=== PATIENT | male | born 1955 | race Caucasian/White ===

== ENCOUNTER 2019-08-17 17:56 | Outpatient (RCR) | payer BC, SELFPAY ==
[2019-08-17] MEDS: SODIUM CHLORIDE 0.9% IV 1,000 ML 500 ML IV CONT (18:25)
== END 2019-11-15 23:59 | disposition home or self-care (01) ==
LOC: CHSTREATRM 17:56
DX: C15.9 Malignant neoplasm of esophagus, unspecified (principal); E86.0 Dehydration
CPT/HCPCS: 96360; 96361; J7030

== ENCOUNTER 2020-03-28 15:20 | Outpatient (CLI) | payer BC, SELFPAY ==
--- NOTE | ~2020-03-28 | XR_ITS ---
EXAMINATION: XR lumbar spine 2-3V DATE: 03/28/2020 15:51 INDICATION: Low back pain TECHNIQUE: Anteroposterior and lateral views of the lumbar spine, and cone-down lateral view of the l umbosacral junction were obtained. COMPARISON: None. FINDINGS: There is no fracture, dislocation, or subluxation. Mild loss of intervertebral disc space h eight is present at L4-5. The vertebral body heights are maintained. There is moderate lower lumbar f acet osteoarthritis. Small degenerative osteophytes project from the anterior endplates of multiple v ertebral bodies. Calcified atherosclerosis is noted. There are surgical clips projecting in the midl ine of the lower thorax. IMPRESSION: 1. Mild lumbar spondylosis without acute findings. Reviewed, dictated and finalized at location F.
--- NOTE | ~2020-03-28 | XR_ITS ---
EXAMINATION:XR_[id number]_CR DATE: 03/28/2020 15:51 INDICATION: Neck and right shoulder pain TECHNIQUE: AP, lateral, lateral swimmers and odontoid views of the cervical spine are provided. COMPARISON: None FINDINGS: The odontoid is intact. No fracture is identified. Bone alignment is normal. There is sever e loss of intervertebral disc space height at C5-6 and C6-7. There is mild chronic anterior wedging o f the C6 vertebral body without significant change. Small degenerative osteophytes project from the a nterior endplates of multiple vertebral bodies. A partially imaged right-sided Port-A-Cath is noted. Prevertebral soft tissues are normal. IMPRESSION: 1. Severe lower cervical spondylosis and chronic anterior wedging at C6 without acute findings or sig nificant interval change. Reviewed, dictated and finalized at location F. IMPRESSION: 1. Severe lower cervical spondylosis and chronic anterior wedging at C6 without acute findings or significant interval change.
--- NOTE | ~2020-03-28 | XR_ITS ---
EXAMINATION: XR thoracic spine 3V DATE: 03/28/2020 15:52 INDICATION: Back pain TECHNIQUE: AP, lateral and lateral swimmer's views of the thoracic spine were obtained. COMPARISON: None. FINDINGS: Back pain the vertebral body heights and alignment are normal. There is mild loss of interv ertebral disc space height at multiple levels throughout the thoracic spine. Small degenerative osteo phytes project from the anterior endplates of multiple vertebral bodies. Surgical clips are seen in m idline thorax, suspected to be related to esophagectomy. IMPRESSION: 1. Mild thoracic spondylosis without acute findings. Reviewed, dictated and finalized at location F.
== END 2020-03-28 15:21 | disposition home or self-care (01) ==
LOC: CHSIMG 15:22
PROVIDERS: PCP Internal Medicine; Visit Provider Internal Medicine
DX: M25.511 Pain in right shoulder (principal); M54.5 Low back pain; Z85.01 Personal history of malignant neoplasm of esophagus
CPT/HCPCS: 72040; 72072; 72100

== ENCOUNTER 2020-04-06 10:36 | Outpatient (CLI) | payer BC, SELFPAY ==
[2020-04-06 10:57] LABS: Basophils Absolute Auto 0.02 K/mm3 (0.00-0.10); Basophils Percent Auto 0.3 % (0.0-1.0); Eosinophils Absolute Auto 0.06 K/mm3 (0.02-0.50); Eosinophils Percent Auto 0.8 % (1.0-6.0); Hematocrit 40.2 % (40.0-54.0); Hemoglobin 13.6 g/dL (14.0-18.0); Immature Granulocyte Absolute 0.06 K/mm3 (0.00-0.00); Immature Granulocyte Percent A 0.8 % (0.0-0.0); Lymphocytes Absolute Auto 0.53 K/mm3 (1.10-4.50); Lymphocytes Percent Auto 6.8 % (18.0-42.0); Mean Corpuscular HGB Conc 33.8 g/dL (32.0-36.0); Mean Corpuscular Hemoglobin 30.8 pg (27.0-31.0); Mean Corpuscular Volume 91.2 fL (78.0-102.0); Mean Platelet Volume 8.5 fl (8.7-11.0); Monocytes Absolute Auto 0.52 K/mm3 (0.10-0.90); Monocytes Percent Auto 6.7 % (2.0-11.0); Neutrophils Absolute Auto 6.6 K/mm3 (1.7-7.2); Neutrophils Percent Auto 84.6 % (50.0-70.0); Platelet Count Result 181 K/mm3 (150-420); Red Blood Count 4.41 M/mm3 (4.70-6.10); Red Cell Distribution Width 12.7 % (11.6-14.4); White Blood Count 7.8 K/mm3 (4.8-10.8)
[2020-04-06 11:33] LABS: Alanine Aminotransferase 15 U/L (16-63); Albumin Level 3.4 g/dL (3.4-5.0); Alkaline Phosphatase 94 U/L (46-116); Anion Gap 12.3 mmol/L (7-16); Aspartate Amino Transferase 10 U/L (15-37); Bilirubin,Total 0.4 mg/dL (0.00-1.00); Blood Urea Nitrogen 16 mg/dL (7-18); CRP 1.2 mg/dL (0.0-0.9); Calcium 8.3 mg/dL (8.5-10.1); Carbon Dioxide 30 mmol/L (21-32); Chloride 102 mmol/L (98-108); Estimated Glomerular Filt Rate > 60; Glucose 108 mg/dL (70-99); Osmolality Calculated 292 mOsm/kg (285-295); Potassium 4.3 mmol/L (3.5-5.1); Sodium 140 mmol/L (136-145); Total Protein 6.5 g/dL (6.4-8.2)
== END 2020-04-06 10:37 | disposition home or self-care (01) ==
LOC: CHSLAB 10:37
PROVIDERS: PCP Internal Medicine; Visit Provider Internal Medicine
DX: M54.9 Dorsalgia, unspecified (principal)
CPT/HCPCS: 36415; 80053; 85025; 86140

== ENCOUNTER 2020-06-08 11:33 | Outpatient (CLI) | payer BC, SELFPAY ==
[2020-06-08] MEDS: SODIUM CHLORIDE 0.9% IV 1,000 ML 500 ML IVPB (12:09)
== END 2020-06-08 11:34 | disposition home or self-care (01) ==
PROVIDERS: PCP Internal Medicine
DX: C15.9 Malignant neoplasm of esophagus, unspecified (principal); E86.0 Dehydration
CPT/HCPCS: 96360; 96361; J7030

== ENCOUNTER 2020-06-19 13:20 | Outpatient (CLI) | payer BC, SELFPAY ==
[2020-06-19] MEDS: SODIUM CHLORIDE 0.9% IV 1,000 ML 999 ML IV CONT (13:43)
--- NOTE | 2020-06-19 13:50 | PC.NURSE ---
Patient here for 1 L of normal saline for hydration. Patient post day 4 of chemo therapy infusion. Reports being very tired. 1 L administered over 2 hours. Safe exit of hospital.
== END 2020-06-19 13:21 | disposition home or self-care (01) ==
PROVIDERS: PCP Internal Medicine
DX: C15.9 Malignant neoplasm of esophagus, unspecified (principal); E86.0 Dehydration
CPT/HCPCS: 96360; 96361; J7030

== ENCOUNTER 2020-07-01 14:46 | Outpatient (CLI) | payer BC, SELFPAY ==
[2020-07-01] MEDS: SODIUM CHLORIDE 0.9% IV 1,000 ML 500 ML IV CONT (15:10)
== END 2020-07-01 14:47 | disposition home or self-care (01) ==
LOC: CHSTREATRM 14:49
PROVIDERS: PCP Internal Medicine; Visit Provider Internal Medicine
DX: C15.9 Malignant neoplasm of esophagus, unspecified (principal); E86.0 Dehydration
CPT/HCPCS: 96360; 96361; J7030

== ENCOUNTER 2020-07-13 12:03 | Outpatient (CLI) | payer BC, SELFPAY ==
[2020-07-13] MEDS: SODIUM CHLORIDE 0.9% IV 1,000 ML 500 ML IVPB (12:20)
[2020-07-13 12:45] VITALS: BP 111/59; PULSE 62; RESP 12; O2SAT 97
--- NOTE | 2020-07-13 14:22 | PC.NURSE ---
Patient here for 1 L Normal saline. Voices no concerns. Home chemo pump removed r/t being infusion completed. Chemo pump given to to take back in two weeks. Chemo cartridge depose in chemo bucket. 1 L normal saline administered via port cath that was accessed. Tolerated well. Port needle deaccessed. Site good. Safe exit of hospital. Will return as needed for fluids as going through chemo.
== END 2020-07-13 12:04 | disposition home or self-care (01) ==
PROVIDERS: PCP Internal Medicine
DX: C15.9 Malignant neoplasm of esophagus, unspecified (principal); E86.0 Dehydration
CPT/HCPCS: 96360; 96361; J7030

== ENCOUNTER 2020-07-17 13:11 | Outpatient (CLI) | payer BC, SELFPAY ==
[2020-07-17] MEDS: HEPARIN SOD FLUSH 500 UNITS/5 ML SYRINGE IV PUSH (13:30)
[2020-07-17] MEDS: SODIUM CHLORIDE 0.9% IV 1,000 ML 500 ML IVPB (13:30)
--- NOTE | 2020-07-17 13:32 | PC.NURSE ---
Patient here for 1 L normal saline s/p chemo last week and not eating or drinking well since. Patient get 5 fu and oxcilliplatin regimen. Patient has no other complaints voiced. 1 L normal saline administered. see DEC.
--- NOTE | 2020-07-17 15:34 | PC.NURSE ---
Infusion complete, foster port de accessed, flushed with saline and heparin, tolerated well, bandaid applied, tolerated well
== END 2020-07-17 13:12 | disposition home or self-care (01) ==
LOC: CHSTREATRM 13:15
PROVIDERS: PCP Internal Medicine
DX: C15.9 Malignant neoplasm of esophagus, unspecified (principal); E86.0 Dehydration
CPT/HCPCS: 96360; 96361; J7030

== ENCOUNTER 2020-08-02 13:34 | Outpatient (CLI) | payer BC, SELFPAY ==
[2020-08-02] MEDS: SODIUM CHLORIDE 0.9% IV 1,000 ML 500 ML IVPB (13:45)
[2020-08-02 13:49] VITALS: BP 112/60; PULSE 72; RESP 14; TEMP 36.4; O2SAT 97
--- NOTE | 2020-08-02 15:55 | PC.NURSE ---
Left Port a cath deaccessed. Patient tolerated well. No c/o.
== END 2020-08-02 13:35 | disposition home or self-care (01) ==
PROVIDERS: PCP Internal Medicine
DX: C15.9 Malignant neoplasm of esophagus, unspecified (principal); E86.0 Dehydration
CPT/HCPCS: 96360; 96361; J7030

== ENCOUNTER 2020-08-17 13:02 | Outpatient (CLI) | payer BC, SELFPAY ==
[2020-08-17] MEDS: SODIUM CHLORIDE 0.9% IV 1,000 ML 500 ML IVPB (13:24)
--- NOTE | 2020-08-17 13:25 | PC.NURSE ---
Pt to room 228 amb per self. A&ox3. Has no questions or concerns. Oriented to room, call tabor in reach, reminded to call with needs.
--- NOTE | 2020-08-17 14:30 | PC.NURSE ---
IV fluids continue to infuse. Pt has no complaints.
--- NOTE | 2020-08-17 15:27 | PC.NURSE ---
NS infused without difficulty. Pt tolerated well, has no complaints. Discharged to home amb with spouse.
== END 2020-08-17 13:03 | disposition home or self-care (01) ==
LOC: CHSTREATRM 13:07
PROVIDERS: PCP Internal Medicine
DX: E86.0 Dehydration (principal); C15.9 Malignant neoplasm of esophagus, unspecified
CPT/HCPCS: 96360; 96361; J7030

== ENCOUNTER 2020-08-24 13:41 | Outpatient (CLI) | payer BC, SELFPAY ==
[2020-08-24] MEDS: SODIUM CHLORIDE 0.9% IV 1,000 ML 500 ML IVPB (13:57)
--- NOTE | 2020-08-24 14:10 | PC.NURSE ---
Patient here for 1 L normal saline to infuse over 2 hours. Patient just finished a round of chemo. No other concerns voiced at present. 1 L normal saline administered in left upper port a cath.
[2020-08-24 14:19] VITALS: BP 118/63; PULSE 68; RESP 12; TEMP 36.4; O2SAT 97
[2020-08-24] MEDS: HEPARIN SOD FLUSH 500 UNITS/5 ML SYRINGE IV PUSH (16:00)
== END 2020-08-24 13:42 | disposition home or self-care (01) ==
LOC: CHSLAB 13:42
PROVIDERS: PCP Internal Medicine
DX: C15.9 Malignant neoplasm of esophagus, unspecified (principal); E86.0 Dehydration
CPT/HCPCS: 96360; 96361; J7030

== ENCOUNTER 2020-08-29 13:31 | Outpatient (CLI) | payer BC, SELFPAY ==
[2020-08-29] MEDS: SODIUM CHLORIDE 0.9% IV 1,000 ML 500 ML IVPB (13:49)
--- NOTE | 2020-08-29 13:52 | PC.NURSE ---
Patient here for 1 L normal saline s/p 5 day chemo. Patient reports I feel like crap. which expected of post chemo and shorty etc. Port accessed and 1 L Normal saline administered over 2 hours.
[2020-08-29] MEDS: HEPARIN SOD FLUSH 500 UNITS/5 ML SYRINGE IV PUSH (16:08)
== END 2020-08-29 13:32 | disposition home or self-care (01) ==
LOC: CHSTREATRM 13:37
PROVIDERS: PCP Internal Medicine
DX: C15.9 Malignant neoplasm of esophagus, unspecified (principal); E86.0 Dehydration
CPT/HCPCS: 96360; 96361; J7030

== ENCOUNTER 2020-10-09 12:36 | Outpatient (CLI) | payer BC, SELFPAY ==
--- NOTE | 2020-10-09 12:50 | PC.NURSE ---
here for OP IV fluids
[2020-10-09] MEDS: SODIUM CHLORIDE 0.9% IV 1,000 ML 500 ML IVPB (13:09)
--- NOTE | 2020-10-09 15:00 | PC.NURSE ---
infusion complete, discharge to home, saline lock removd
[2020-10-09] MEDS: HEPARIN SOD FLUSH 500 UNITS/5 ML SYRINGE IV PUSH (15:13)
== END 2020-10-09 12:37 | disposition home or self-care (01) ==
PROVIDERS: PCP Internal Medicine
DX: C15.9 Malignant neoplasm of esophagus, unspecified (principal); E86.0 Dehydration
CPT/HCPCS: 96360; 96361; J7030

== ENCOUNTER 2020-10-21 12:52 | Outpatient (CLI) | payer BC, SELFPAY ==
[2020-10-21] MEDS: SODIUM CHLORIDE 0.9% IV 1,000 ML 500 ML IV CONT (13:23)
== END 2020-10-21 12:53 | disposition home or self-care (01) ==
LOC: CHSTREATRM 12:53
PROVIDERS: PCP Internal Medicine; Visit Provider Internal Medicine Hematology
DX: C15.9 Malignant neoplasm of esophagus, unspecified (principal); E86.0 Dehydration
CPT/HCPCS: 96360; 96361; J7030

== ENCOUNTER 2020-11-03 12:56 | Outpatient (CLI) | payer BC, SELFPAY ==
--- NOTE | 2020-11-03 13:10 | PC.NURSE ---
HERE FOR OP IV THERAPY
[2020-11-03] MEDS: SODIUM CHLORIDE 0.9% IV 1,000 ML 500 ML IVPB (13:25)
[2020-11-03] MEDS: HEPARIN SOD FLUSH 500 UNITS/5 ML SYRINGE IV PUSH (13:25)
--- NOTE | 2020-11-03 15:35 | PC.NURSE ---
Patient tolerated well. Port site discontinued, bandaid applied to site. Patient left ambulatory. Denies any needs at this time.
== END 2020-11-03 12:57 | disposition home or self-care (01) ==
LOC: CHSTREATRM 12:58
PROVIDERS: PCP Internal Medicine; Visit Provider Internal Medicine Hematology
DX: C15.9 Malignant neoplasm of esophagus, unspecified (principal); E86.0 Dehydration
CPT/HCPCS: 96360; 96361; 96365; 96366; J7030

== ENCOUNTER 2020-11-09 12:54 | Outpatient (CLI) | payer BC, SELFPAY ==
[2020-11-09] MEDS: SODIUM CHLORIDE 0.9% IV 1,000 ML 500 ML IVPB (13:05)
[2020-11-09 13:25] VITALS: BP 124/63; PULSE 72; RESP 14; TEMP 36.5; O2SAT 97
== END 2020-11-09 12:55 | disposition home or self-care (01) ==
LOC: CHSTREATRM 12:56
PROVIDERS: PCP Internal Medicine; Visit Provider Internal Medicine Hematology
DX: C15.9 Malignant neoplasm of esophagus, unspecified (principal); E86.0 Dehydration
CPT/HCPCS: 96360; 96361; J7030

== ENCOUNTER 2020-11-17 12:58 | Outpatient (CLI) | payer BC, SELFPAY ==
--- NOTE | 2020-11-17 13:15 | PC.NURSE ---
Pt to room 228 amb per self. A&Ox3. Has no questions or concerns. Port accessed on arrival. Without redness, edema or drainage. Flushed easily with NS, blood return noted. Oriented to room, call tabor in reach, reminded to call with needs.
[2020-11-17] MEDS: SODIUM CHLORIDE 0.9% IV 1,000 ML 500 ML IVPB (13:24)
--- NOTE | 2020-11-17 14:53 | PC.NURSE ---
Pt up in chair watching TV. IVF's continue as ordered. Pt has no complaints.
[2020-11-17] MEDS: HEPARIN SOD FLUSH 500 UNITS/5 ML SYRINGE IV PUSH (15:40)
== END 2020-11-17 12:59 | disposition home or self-care (01) ==
LOC: CHSTREATRM 12:59
PROVIDERS: PCP Internal Medicine; Visit Provider Internal Medicine Hematology
DX: C15.9 Malignant neoplasm of esophagus, unspecified (principal); E86.0 Dehydration
CPT/HCPCS: 96360; 96361; 96365; 96366; 96367; J7030

== ENCOUNTER 2020-11-23 13:14 | Outpatient (CLI) | payer BC, SELFPAY ==
[2020-11-23] MEDS: SODIUM CHLORIDE 0.9% IV 1,000 ML 500 ML IVPB (13:30)
--- NOTE | 2020-11-23 14:28 | PC.NURSE ---
Patient here for 1 L NS infusion over 2 hours. Current chemo patient needing fluids from time to time. No concerns voiced.
[2020-11-23 14:30] VITALS: BP 119/69; PULSE 72; RESP 18; O2SAT 96
--- NOTE | 2020-11-23 15:34 | PC.NURSE ---
Patient's IV infusion completed. Left side port a cath removed after being flushed with Heparin Flush and bandaid applied. Patient tolerated well. No active bleeding observed. Port site care instructions reviewed, patient states understanding.
== END 2020-11-23 13:15 | disposition home or self-care (01) ==
LOC: CHSTREATRM 13:16
PROVIDERS: PCP Internal Medicine; Visit Provider Internal Medicine Hematology
DX: C15.9 Malignant neoplasm of esophagus, unspecified (principal); E86.0 Dehydration
CPT/HCPCS: 96360; 96361; J7030

== ENCOUNTER 2020-12-01 12:55 | Outpatient (CLI) | payer BC, SELFPAY ==
--- NOTE | 2020-12-01 13:10 | PC.NURSE ---
Pt to room 202 amb with spouse. A&Ox3. States he doesn't feel so good today after chemo ending yesterday but has no specific complaints. Port remains accessed from chemo. Dressing clean, dry and intact, no redness, edema or drainage noted. Oriented to room. Call tabor in reach. Reminded to call with needs.
[2020-12-01] MEDS: SODIUM CHLORIDE 0.9% IV 1,000 ML 500 ML IVPB (13:14)
[2020-12-01] MEDS: HEPARIN SOD FLUSH 500 UNITS/5 ML SYRINGE IV PUSH (15:30)
--- NOTE | 2020-12-01 15:33 | PC.NURSE ---
IV hydration completed. Port a cath flushed with heparin and access removed. Band aid applied. Site care instructions given. Patient and state understanding.
== END 2020-12-01 12:56 | disposition home or self-care (01) ==
LOC: CHSLAB 12:57
PROVIDERS: PCP Internal Medicine; Visit Provider Internal Medicine Hematology
DX: C15.9 Malignant neoplasm of esophagus, unspecified (principal); E86.0 Dehydration
CPT/HCPCS: 96360; 96361; J7030

== ENCOUNTER 2020-12-06 13:17 | Outpatient (CLI) | payer BC, SELFPAY ==
--- NOTE | 2020-12-06 13:30 | PC.NURSE ---
presents for OP IV fluids, port accessed and fluids started,
[2020-12-06] MEDS: SODIUM CHLORIDE 0.9% IV 1,000 ML 500 ML IVPB (13:38)
--- NOTE | 2020-12-06 15:40 | PC.NURSE ---
saline infused, port flushed with heparin, port de accessed, bandage applied, tolerated well, home with
== END 2020-12-06 13:18 | disposition home or self-care (01) ==
LOC: CHSTREATRM 13:21
PROVIDERS: PCP Internal Medicine; Visit Provider Internal Medicine Hematology
DX: E86.0 Dehydration (principal)
CPT/HCPCS: 96360; 96361; J7030

== ENCOUNTER 2020-12-15 13:06 | Outpatient (CLI) | payer BC, SELFPAY ==
--- NOTE | 2020-12-15 13:20 | PC.NURSE ---
PT TO ROOM 229 AMB WITH DAUGHTER. A&OX3. HAS NO QUESTIONS OR CONCERNS. ORIENTED TO ROOM, CALL KHALIL IN REACH. REMINDED TO CALL WITH NEEDS.
[2020-12-15] MEDS: SODIUM CHLORIDE 0.9% IV 1,000 ML 500 ML IVPB (13:33)
[2020-12-15] MEDS: HEPARIN SOD FLUSH 500 UNITS/5 ML SYRINGE IV PUSH (15:44)
--- NOTE | 2020-12-15 15:45 | PC.NURSE ---
IV infusion completed. Port a cath flushed with NS and Heparin. Port deaccessed. Pressure applied than bandaid. Patient tolerated well.
== END 2020-12-15 13:07 | disposition home or self-care (01) ==
LOC: CHSTREATRM 13:09
PROVIDERS: PCP Internal Medicine; Visit Provider Internal Medicine Hematology
DX: E86.0 Dehydration (principal); C15.9 Malignant neoplasm of esophagus, unspecified; C79.9 Secondary malignant neoplasm of unspecified site
CPT/HCPCS: 96360; 96361; J7030

== ENCOUNTER 2021-01-02 13:11 | Outpatient (CLI) | payer BC, SELFPAY ==
[2021-01-02] MEDS: SODIUM CHLORIDE 0.9% IV 1,000 ML 500 ML IVPB (13:36)
--- NOTE | 2021-01-02 13:36 | PC.NURSE ---
Pt to room 229 per wc with spouse. To chair per self. A&Ox3. Pt has no complaints, just states he doesn't feel the greatest . Oriented to room. Call tabor in reach. Reminded to call with needs.
[2021-01-02] MEDS: HEPARIN SOD FLUSH 500 UNITS/5 ML SYRINGE IV PUSH (15:42)
--- NOTE | 2021-01-02 15:46 | PC.NURSE ---
IV fluids completed. Port site to right side of chest flushed with heparin flush. Port a cath deaccessed and pressure applied. Bandaid applied to site. Patient tolerated well.
== END 2021-01-02 13:12 | disposition home or self-care (01) ==
LOC: CHSTREATRM 13:15
PROVIDERS: PCP Internal Medicine; Visit Provider Internal Medicine Hematology
DX: C15.9 Malignant neoplasm of esophagus, unspecified (principal); E86.0 Dehydration
CPT/HCPCS: 96360; 96361; J7030

== ENCOUNTER 2021-01-12 12:56 | Outpatient (CLI) | payer BC, SELFPAY ==
--- NOTE | 2021-01-12 13:05 | PC.NURSE ---
Here for OP infusion
[2021-01-12] MEDS: SODIUM CHLORIDE 0.9% IV 1,000 ML 500 ML IVPB (13:17)
--- NOTE | 2021-01-12 15:17 | PC.NURSE ---
infusion complete, tolerated well, foster port removed
--- NOTE | 2021-01-12 15:19 | PC.NURSE ---
ambulatory with upon dc home
[2021-01-12] MEDS: HEPARIN SOD FLUSH 500 UNITS/5 ML SYRINGE IV PUSH (15:20)
== END 2021-01-12 12:57 | disposition home or self-care (01) ==
LOC: CHSTREATRM 12:58
PROVIDERS: PCP Internal Medicine; Visit Provider Internal Medicine Hematology
DX: C15.9 Malignant neoplasm of esophagus, unspecified (principal); E86.0 Dehydration
CPT/HCPCS: 96360; 96361; J7030